=== PATIENT | female | born 1945 | race Caucasian/White ===

== ENCOUNTER 2018-10-26 07:15 | Outpatient (CLI) | payer OTHER | END 2018-10-26 07:26 | disposition home or self-care (01) | LOC: LAB 07:15 | DX: D51.3 Other dietary vitamin B12 deficiency anemia (principal); E03.8 Other specified hypothyroidism; F10.10 Alcohol abuse, uncomplicated; I10 Essential (primary) hypertension; J30.89 Other allergic rhinitis; D50.8 Other iron deficiency anemias; D51.8 Other vitamin B12 deficiency anemias; D69.49 Other primary thrombocytopenia; K90.89 Other intestinal malabsorption; R97.0 Elevated carcinoembryonic antigen [CEA]; R97.8 Other abnormal tumor markers; Z12.31 Encounter for screening mammogram for malignant neoplasm of breast; N63.10 Unspecified lump in the right breast, unspecified quadrant; N63.20 Unspecified lump in the left breast, unspecified quadrant ==